=== PATIENT | male | born 1975 ===

== ENCOUNTER → 2016-11-05 | Outpatient (REF) ==
--- NOTE | 2016-11-05 22:55 | REP ---
Clinical: Pain and disability. Technique: AP, lateral, open mouth views of the cervical spine. Findings: Alignment and lordosis maintained. No acute fracture / compression injury or subluxation. Moderate degenerative disc osteophyte complex noted at the C5-6, and C6-7 include anterior osteophytes and endplate sclerosis with disc space narrowing. Impression: Moderate degenerative changes at the C5-6 and C6-7 levels. Signed by Shaka Pierson MD 11/05/2016 10:47 P
== END ==
LOC: M SMT 14:31
PROVIDERS: ATTEND Internal Medicine
DX: M54.5 Low back pain (principal)